=== PATIENT | male | born 1960 | race Caucasian/White ===

== ENCOUNTER 2017-07-18 13:45 | Emergency (ER) | payer OTHER ==
[~2017-07-18] VITALS: Ht 180.3 cm; Wt 90.7 kg
[~2017-07-18 13:45] MED LIST: HYDACE5 PO; HYDACE7.5 PO; IBUP600 PO; OXYACE5T PO; RXHYDACE PO
[2017-07-18] MEDS ORDERED: Norco 5-325 Ta1 EACH PO (14:58)
== END 2017-07-18 15:05 | disposition home or self-care (01) ==
LOC: ER 13:45
DX: S20.212A Contusion of left front wall of thorax, initial encounter (principal); W17.89XA Other fall from one level to another, initial encounter; F17.200 Nicotine dependence, unspecified, uncomplicated
CPT/HCPCS: 71100; 99283

== ENCOUNTER 2017-07-24 11:39 | Emergency (ER) | payer OTHER ==
[~2017-07-24] VITALS: Ht 180.3 cm; Wt 90.7 kg
[~2017-07-24 11:39] MED LIST changes: +Norco 5-325 Ta1 EACH PO
[2017-07-24] MEDS ORDERED: Zithromax250 MG PO (12:35)
[2017-07-24] MEDS ORDERED: IBUP800 PO (12:35)
[2017-07-24] MEDS ORDERED: Norco 5-325 Ta1 EACH PO (12:35)
== END 2017-07-24 13:01 | disposition home or self-care (01) ==
LOC: ER 11:39
DX: S22.32XA Fracture of one rib, left side, initial encounter for closed fracture (principal); J44.9 Chronic obstructive pulmonary disease, unspecified; M54.9 Dorsalgia, unspecified; G89.29 Other chronic pain; F17.200 Nicotine dependence, unspecified, uncomplicated; V87.8XXA Person injured in other specified noncollision transport accidents involving motor vehicle (traffic), initial encounter
CPT/HCPCS: 71046; 99283

== ENCOUNTER 2019-01-07 19:42 | Emergency (ER) | payer OTHER ==
[~2019-01-07] VITALS: Ht 180.3 cm; Wt 90.7 kg
[~2019-01-07 19:42] MED LIST changes: +IBUP800 PO; +Zithromax250 MG PO
== END 2019-01-07 22:21 | disposition home or self-care (01) ==
LOC: ER 19:42
DX: I69.392 Facial weakness following cerebral infarction (principal); I69.354 Hemiplegia and hemiparesis following cerebral infarction affecting left non-dominant side; F17.200 Nicotine dependence, unspecified, uncomplicated; Z85.51 Personal history of malignant neoplasm of bladder
CPT/HCPCS: 70450; 99284-25

== ENCOUNTER 2020-09-04 13:05 | Emergency (ER) | payer OTHER ==
[~2020-09-04] VITALS: Ht 180.3 cm; Wt 95.2 kg
== END 2020-09-04 13:40 | disposition home or self-care (01) ==
LOC: ER 13:05
DX: H00.015 Hordeolum externum left lower eyelid (principal); J44.9 Chronic obstructive pulmonary disease, unspecified; F17.210 Nicotine dependence, cigarettes, uncomplicated
CPT/HCPCS: 99282

== ENCOUNTER 2022-01-19 00:48 | Emergency (ER) | payer OTHER ==
[2022-01-19] MEDS ORDERED: OSEL75CA PO (03:38)
[2022-01-20] MEDS ORDERED: ONDA4ODT MM (16:08)
[2022-01-20] MEDS ORDERED: ALBU90OI INH (16:08)
[2022-01-20] MEDS ORDERED: IBUP400 PO (16:08)
== END 2022-01-19 04:14 | disposition home or self-care (01) ==
DX: J10.1 Influenza due to other identified influenza virus with other respiratory manifestations (principal); J44.9 Chronic obstructive pulmonary disease, unspecified; F17.210 Nicotine dependence, cigarettes, uncomplicated; Z20.822 Contact with and (suspected) exposure to COVID-19

== ENCOUNTER 2022-01-20 14:42 | Emergency (ER) | payer OTHER ==
[~2022-01-20] VITALS: Ht 177.8 cm; Wt 90.7 kg
[~2022-01-20 14:42] MED LIST changes: +OSEL75CA PO
[2022-01-20] MEDS ORDERED: ALBU90OI INH (16:08)
[2022-01-20] MEDS ORDERED: IBUP400 PO (16:08)
[2022-01-20] MEDS ORDERED: ONDA4ODT MM (16:08)
== END 2022-01-20 16:16 | disposition home or self-care (01) ==
LOC: ER 14:42
DX: J10.1 Influenza due to other identified influenza virus with other respiratory manifestations (principal); R19.7 Diarrhea, unspecified; J44.9 Chronic obstructive pulmonary disease, unspecified; F17.210 Nicotine dependence, cigarettes, uncomplicated
CPT/HCPCS: 94640; 94664; A9270

== ENCOUNTER 2022-01-23 21:51 | Emergency (ER) | payer OTHER ==
[~2022-01-23] VITALS: Ht 177.8 cm; Wt 90.7 kg
[~2022-01-23 21:51] MED LIST changes: +ALBU90OI INH; +IBUP400 PO; +ONDA4ODT MM
[2022-01-23 22:56] LABS: Source, Urine Clean Catch
[2022-01-23 22:59] LABS: Appearance, Urine Clear (Clear); Bilirubin, Urine Neg (Neg); Blood, Urine Neg (Neg); Color, Urine Yellow (P-Yellow); Glucose Qualitative, Urine Neg (Neg); Ketones, Urine Neg (Neg); Leukocyte Esterase, Urine Neg (Neg); Nitrite, Urine Neg (Neg); Protein, Urine 1+ (Neg); Urobilinogen, Urine 1+ (Normal)
[2022-01-23] MEDS ORDERED: ANTIFUNGAL30 GM TOP (22:59)
[2022-01-24] MEDS ORDERED: ONDA4ODT MM (00:35)
== END 2022-01-24 00:48 | disposition home or self-care (01) ==
LOC: ER 21:51
PROVIDERS: Student in an Organized Health Care Education/Training Program
DX: R10.30 Lower abdominal pain, unspecified (principal); J10.1 Influenza due to other identified influenza virus with other respiratory manifestations; B35.4 Tinea corporis; B35.0 Tinea barbae and tinea capitis; J44.9 Chronic obstructive pulmonary disease, unspecified; F17.210 Nicotine dependence, cigarettes, uncomplicated; Z79.899 Other long term (current) drug therapy
CPT/HCPCS: 51798

== ENCOUNTER 2023-03-02 20:43 | Emergency (ER) | payer OTHER ==
[~2023-03-02] VITALS: Ht 182.9 cm; Wt 102.1 kg
[~2023-03-02 20:43] MED LIST changes: +ANTIFUNGAL30 GM TOP
[2023-03-02 20:48] VITALS: BP 161/93
[2023-03-02 21:19] LABS: BASOPHILS ABSOLUTE AUTO 0.04 K/mm3 (0.00-0.23); BASOPHILS PERCENT AUTO 1 % (0-2); EOSINOPHILS ABSOLUTE AUTO 0.06 K/mm3 (0.00-0.68); EOSINOPHILS PERCENT AUTO 1 % (0-6); Hematocrit 49.8 % (37.0-53.0); Hemoglobin 17.1 g/dL (13.5-17.5); IMMATURE GRAN ABSOLUTE AUTO 0.06 K/mm3 (0.00-0.10); IMMATURE GRAN PERCENT AUTO 1 % (0-1); LYMPHOCYTES ABSOLUTE AUTO 1.32 K/mm3 (0.84-5.20); LYMPHOCYTES PERCENT AUTO 16 % (21-46); MONOCYTES ABSOLUTE AUTO 1.48 K/mm3 (0.16-1.47); MONOCYTES PERCENT AUTO 18 % (4-13); Mean Corpuscular HGB Conc 34.3 g/dL (31.5-36.5); Mean Corpuscular Volume 90 fL (80-100); Mean Platelet Volume 9.9 fL (9.1-12.4); NEUTROPHILS PERCENT AUTO 65 % (41-73); Platelet Count 215 K/mm3 (150-400); RDW Coefficient Variation 12.6 % (11.7-14.2); RDW Standard Deviation 41.6 fL (35.1-46.3); Red Blood Cell Count 5.52 M/mm3 (4.30-5.90); White Blood Cell Count 8.46 K/mm3 (4.00-11.30)
[2023-03-02 21:45] LABS: Albumin, Blood 3.5 g/dL (3.4-5.0); Albumin/Globulin Ratio 0.9 (0.8-1.8); Bilirubin, Total 0.1 mg/dL (0.1-1.0); Bun/Creatinine Ratio 15.1 (12.0-20.0); Creatinine, Blood 0.86 mg/dL (0.60-1.20); Globulin, Blood 4.1 g/dL (2.2-4.0); Potassium, Blood 4.1 mmol/L (3.5-5.5); Total Protein, Blood 7.6 g/dL (6.4-8.2)
[2023-03-02 21:45] LABS: Influenza A, PCR NEGATIVE (NEGATIVE); Influenza B, PCR NEGATIVE (NEGATIVE); Resp Syncytial Virus, PCR NEGATIVE (NEGATIVE)
[2023-03-02 22:53] LABS: SARS-Cov-2 (COVID-19) PCR, MMC POSITIVE (NEGATIVE)
== END 2023-03-03 00:02 | disposition home or self-care (01) ==
LOC: ER 20:43
PROVIDERS: Student in an Organized Health Care Education/Training Program
DX: U07.1 COVID-19 (principal); K76.0 Fatty (change of) liver, not elsewhere classified; F17.210 Nicotine dependence, cigarettes, uncomplicated
CPT/HCPCS: 0241U; 71046; 76705; 80053; 83690; 85025; 93005; 93010; 99284-25; J1885